=== PATIENT | male | born 1950 | race Caucasian/White ===

== ENCOUNTER → 2016-07-17 | Outpatient (CLI) | payer MEDICARE, OTHER ==
[~2016-07-17] MED LIST: ASPIRIN81 MG PO; BUPROPION XL300 MG PO; CARVEDILOL12.5 MG PO; CYMBALTA60 MG PO; FAMCICLOVIR500 MG PO; HYDROCODON-ACE1 EAC6 PO; LOSARTAN POTAS100 MG PO; METHYLPHENIDATE20 MG PO; NORVASC 5 MG TAB5 MG PO
== END ==
LOC: US 12:45
PROVIDERS: Internal Medicine Nephrology
DX: N18.3 Chronic kidney disease, stage 3 (moderate) (principal); E87.1 Hypo-osmolality and hyponatremia; R93.41 Abnormal radiologic findings on diagnostic imaging of renal pelvis, ureter, or bladder; J43.9 Emphysema, unspecified
CPT/HCPCS: 36415; 71020; 80053; 82043; 82436; 82570; 83935; 83970; 84100; 84133; 84300; 84443; 89050

== ENCOUNTER → 2016-07-18 | Outpatient (CLI) | payer MEDICARE, OTHER | DX: N18.3 Chronic kidney disease, stage 3 (moderate) (principal); E87.1 Hypo-osmolality and hyponatremia | CPT/HCPCS: 36415; 82533 ==

== ENCOUNTER → 2016-09-19 | Outpatient (CLI) | payer MEDICARE, OTHER | LOC: KOH-I 10:30 | DX: E87.1 Hypo-osmolality and hyponatremia (principal); R91.8 Other nonspecific abnormal finding of lung field | CPT/HCPCS: 71250 ==